=== PATIENT | male | born 1955 | race Caucasian/White ===

== ENCOUNTER 2016-10-08 15:15 | Emergency (ER) | payer BC ==
[~2016-10-08] VITALS: Ht 180.3 cm; Wt 93.0 kg
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
[2016-10-08 15:47] LABS: BASOPHILS % (AUTO) 0.4 % (0.0-2.0); EOSINOPHILS # (AUTO) 0.1 /CMM (0.0-0.7); EOSINOPHILS % (AUTO) 1.1 % (0.0-6.0); HEMATOCRIT 42 % (39-51); HEMOGLOBIN 13.7 g/dL (13.5-17.5); LYMPHOCYTES # (AUTO) 1.4 /CMM (0.8-4.8); LYMPHOCYTES % (AUTO) 21.7 % (20.0-44.0); MEAN CORPUSCULAR HEMOGLOBIN 28 PG (26.0-33.0); MEAN CORPUSCULAR HGB CONC 33 g/dl (31.0-36.0); MEAN CORPUSCULAR VOLUME 84 fL (80-96); MONOCYTES # (AUTO) 0.5 /CMM (0.1-1.30); MONOCYTES % (AUTO) 7.9 % (2.0-12.0); NEUTROPHILS # (AUTO) 4.4 /CMM (1.8-8.9); NEUTROPHILS % (AUTO) 68.9 % (43.0-81.0); PLATELET COUNT (AUTO) 190 /CMM (150-450); RDW COEFFICIENT OF VARIATION 14.2 (11.5-15.0); RED BLOOD CELL COUNT(AUTO) 4.99 MIL/uL (4.5-6.0); WHITE BLOOD COUNT (AUTO) 6.4 K/uL (4.3-11.0)
[2016-10-08] MEDS ORDERED: ONDANSETRON HCL/PF 4 MG/2 ML VIAL ONE ×2 (15:55)
[2016-10-08] MEDS ORDERED: MORPHINE SULFATE INJ 2 MG/ML DISP.SYRIN ONE (15:55)
[2016-10-08] MEDS ORDERED: ONDANSETRON HCL/PF 4 MG/2 ML VIAL IV ONE (16:00)
[2016-10-08] MEDS ORDERED: MORPHINE SULFATE INJ 2 MG/ML DISP.SYRIN IV ONE (16:00)
--- NOTE | 2016-10-08 16:00 | NUR ---
PT TO CT SCAN
[2016-10-08 16:01] LABS: INR 1.08 (0.87-1.13); PROTHROMBIN TIME 11.2 SECS (9.5-12.7)
[2016-10-08 16:05] LABS: CALCIUM, SERUM 8.8 mg/dL (8.5-10.1); CARBON DIOXIDE 30 mmol/L (21-32); CHLORIDE 105 mmol/L (98-107); CREATININE 0.7 mg/dL (0.6-1.3); GLUCOSE 94 mg/dL (74-106); POTASSIUM 3.9 mmol/L (3.5-5.1); SODIUM SERUM 141 mmol/L (136-145); UREA NITROGEN, BLOOD 22 mg/dL (7-18)
[2016-10-08 16:14] LABS: TROPONIN I < 0.017 ng/mL (0.00-0.056)
[2016-10-08 17:44] VITALS: BP 132/64
--- NOTE | 2016-10-08 17:47 | NUR ---
Patient discharged to home in stable condition. Written and verbal after care instructions given. Patient verbalizes understanding of instruction. IV removed. Catheter intact and site benign. Pressure and 4x4 applied to site. No bleeding noted. ambulatory with steady gait. rr even and unlabored. CD given, no further complaints.
== END 2016-10-08 17:46 | disposition home or self-care (01) ==
LOC: ER 15:17
DX: M54.2 Cervicalgia (principal); I10 Essential (primary) hypertension; M79.1 Myalgia; V43.52XA Car driver injured in collision with other type car in traffic accident, initial encounter; Y92.488 Other paved roadways as the place of occurrence of the external cause; Y93.89 Activity, other specified; Y99.8 Other external cause status
CPT/HCPCS: 36415; 71010; 72100; 72125; 80048; 84484; 85025; 85730; 93005; 96374; 96375; 99285; A4606; J2270; J2405 ×2; Z7610

== ENCOUNTER 2018-06-07 09:07 | Emergency (ER) | payer BC, OTHER ==
[~2018-06-07] VITALS: Ht 180.3 cm; Wt 92.1 kg
--- NOTE | 2018-06-07 09:07 | NUR ---
PT BIB FAMILY C/O DIZZINESS AND SYNCOPAL EPISODE ON THE WAY TO THE BATHROOM THIS MORNING, PT IS AAOX4, NOT IN RESPIRATORY DISTRESS, V/S STABLE, HOOKED TO MONITOR, KEPT RESTED AND COMFORTABLE, WILL CONTINUE TO MONITOR.
--- NOTE | 2018-06-07 09:10 | NUR ---
SEEN AND EXAMINED BY DR. SCHWARZ.
--- NOTE | 2018-06-07 09:10 | NUR ---
IV LINE ESTABLISHED, LABS DRAWNED AND SENT TO LAB.
--- NOTE | 2018-06-07 09:16 | NUR ---
RADIOLOGY AT BEDSIDE FOR CHEST XRAY.
[2018-06-07 09:23] LABS: BASOPHILS % (AUTO) 0.4 % (0.0-2.0); EOSINOPHILS % (AUTO) 1.2 % (0.0-6.0); HEMATOCRIT 43 % (39-51); HEMOGLOBIN 14.5 g/dL (13.5-17.5); LYMPHOCYTES % (AUTO) 14.3 % (20.0-44.0); MEAN CORPUSCULAR HGB CONC 33 g/dl (31.0-36.0); MEAN CORPUSCULAR VOLUME 87 fL (80-96); MONOCYTES # (AUTO) 0.6 /CMM (0.1-1.30); MONOCYTES % (AUTO) 8.8 % (2.0-12.0); NEUTROPHILS # (AUTO) 5.1 /CMM (1.8-8.9); NEUTROPHILS % (AUTO) 75.3 % (43.0-81.0); PLATELET COUNT (AUTO) 176 /CMM (150-450); RED BLOOD CELL COUNT(AUTO) 4.99 MIL/uL (4.5-6.0); WHITE BLOOD COUNT (AUTO) 6.8 K/uL (4.3-11.0)
[2018-06-07 09:27] LABS: CALCIUM, SERUM 8.8 mg/dL (8.5-10.1); CARBON DIOXIDE 25 mmol/L (21-32); CHLORIDE 106 mmol/L (98-107); CREATININE 0.9 mg/dL (0.6-1.3); GLUCOSE 123 mg/dL (74-106); POTASSIUM 3.9 mmol/L (3.5-5.1); SODIUM SERUM 139 mmol/L (136-145); UREA NITROGEN, BLOOD 15 mg/dL (7-18)
[2018-06-07] MEDS ORDERED: [UNRECOGNIZED DRUG - CODE] (09:55)
[2018-06-07] MEDS ORDERED: LISI-607 PO (09:55)
[2018-06-07] MEDS ORDERED: FOLI1TAB16 PO (09:55)
[2018-06-07 10:03] LABS: ALBUMIN 3.6 g/dL (3.4-5.0); BILIRUBIN,DIRECT 0.1 mg/dL (0.0-0.2); BILIRUBIN,TOTAL 0.7 mg/dL (0.2-1.0); TOTAL PROTEIN, SERUM 7.3 g/dL (6.4-8.2)
[2018-06-07] MEDS ORDERED: ONDANSETRON HCL/PF 4 MG/2 ML VIAL ONE (10:21)
[2018-06-07] MEDS ORDERED: ATOR40TA PO (10:23)
[2018-06-07] MEDS ORDERED: ONDANSETRON HCL/PF 4 MG/2 ML VIAL IV ONE (10:30)
--- NOTE | 2018-06-07 11:38 | NUR ---
PT IS WHEELED TO CT SCAN VIA WHEELCHAIR.
--- NOTE | 2018-06-07 13:13 | NUR ---
IV removed. Catheter intact and site benign. Pressure and 4x4 applied to site. No bleeding noted. Patient discharged to home in stable condition. Written and verbal after care instructions given. Patient verbalizes understanding of instruction.
[2018-06-07 13:14] VITALS: BP 131/84
== END 2018-06-07 13:16 | disposition home or self-care (01) ==
LOC: ER 09:10
DX: R55 Syncope and collapse (principal); I10 Essential (primary) hypertension; Z90.49 Acquired absence of other specified parts of digestive tract; Z95.818 Presence of other cardiac implants and grafts; Z79.899 Other long term (current) drug therapy
CPT/HCPCS: 36415; 70450; 71045; 74176; 80048; 80076; 83690; 84484; 85025; 93005; 99284; J2405

== ENCOUNTER 2019-10-12 11:51 | Inpatient (IN) | payer MEDICARE, OTHER ==
[~2019-10-12] VITALS: Ht 180.3 cm; Wt 92.1 kg
[~2019-10-12 11:51] MED LIST: ATOR40TA PO; FOLI1TAB16 PO; LISI-607 PO; [UNRECOGNIZED DRUG - CODE]
--- NOTE | 2019-10-12 12:05 | NUR ---
PT WHEELED TO ED BED 01 C/O R INGUINAL AREA PAIN AND SWELLING WORST THE PAST 2 DAYS. WAS DIAGNOSED W/ HERNIA 6 MONTHS AGO. PT GOWNED AND PLACED ON MONITOR. VSS. AWAITING MD SNOW.
[2019-10-12] MEDS ORDERED: ONDANSETRON HCL/PF 4 MG/2 ML VIAL ONE (12:23)
--- NOTE | 2019-10-12 12:23 | NUR ---
DR JEONG AT BEDSIDE FOR EVAL.
[2019-10-12] MEDS ORDERED: MORPHINE SULFATE INJ 4 MG/ML DISP.SYRIN ONE (12:24)
[2019-10-12] MEDS ORDERED: MORPHINE SULFATE INJ 2 MG/ML DISP.SYRIN IV ONE (12:30)
[2019-10-12] MEDS ORDERED: ONDANSETRON HCL/PF - ER 4 MG/2 ML VIAL IV ONE (12:30)
--- NOTE | 2019-10-12 12:35 | NUR ---
PT PLACED ON TRENDELENBERG POSITION W/ ICE PACK PLACED TO THE GROIN AREA.
[2019-10-12 12:38] LABS: BASOPHILS % (AUTO) 0.5 % (0.0-2.0); EOSINOPHILS % (AUTO) 0.2 % (0.0-6.0); HEMATOCRIT 42 % (39-51); HEMOGLOBIN 14.1 g/dL (13.5-17.5); LYMPHOCYTES # (AUTO) 1.5 /CMM (0.8-4.8); LYMPHOCYTES % (AUTO) 15.3 % (20.0-44.0); MEAN CORPUSCULAR HGB CONC 33 g/dl (31.0-36.0); MEAN CORPUSCULAR VOLUME 87 fL (80-96); MONOCYTES # (AUTO) 0.5 /CMM (0.1-1.30); NEUTROPHILS # (AUTO) 7.9 /CMM (1.8-8.9); PLATELET COUNT (AUTO) 213 /CMM (150-450); RED BLOOD CELL COUNT(AUTO) 4.87 MIL/uL (4.5-6.0)
[2019-10-12 12:48] LABS: CALCIUM, SERUM 9.1 mg/dL (8.5-10.1); CREATININE 0.8 mg/dL (0.6-1.3); POTASSIUM 3.7 mmol/L (3.5-5.1)
[2019-10-12 12:54] LABS: ALBUMIN 3.8 g/dL (3.4-5.0); BILIRUBIN,DIRECT 0.2 mg/dL (0.0-0.2); BILIRUBIN,TOTAL 0.9 mg/dL (0.2-1.0); TOTAL PROTEIN, SERUM 7.2 g/dL (6.4-8.2)
--- NOTE | 2019-10-12 13:19 | NUR ---
PT TO RADIOLOGY FOR ABDOMINAL CT SCAN VIA [facility].
[2019-10-12] MEDS ORDERED: IV NS 0.9% 250 ML IV ONE (13:21)
[2019-10-12] MEDS ORDERED: IOHEXOL-300 100 ML VIAL IV ONE (13:21)
[2019-10-12] MEDS ORDERED: ASPI-1169 PO (14:47)
--- NOTE | 2019-10-12 15:21 | NUR ---
SPOKE TO REINALDO, RUBY DEVELOPER FOR [facility]
--- NOTE | 2019-10-12 15:43 | NUR ---
PT ENROUTE TO OR VIA GURNEY.
--- NOTE | 2019-10-12 15:49 | NUR ---
CALLED DR LAGUNA, LEFT VOICEMAIL
[2019-10-12] MEDS ORDERED: ANESTHESIA TRAY IN PYXIS 1 EA TRAY MC ONE (15:53)
[2019-10-12] MEDS ORDERED: BUPIVACAINE 0.5 % PF 150 MG/30 ML VIAL ONE (15:53)
--- NOTE | 2019-10-12 16:00 | NUR ---
LEFT MESSAGE FOR DR LAUGNA, NO REPLY
[2019-10-12] MEDS ORDERED: IV NS 0.9% 1,000 ML IV PRN ×2 (16:39→17:00)
[2019-10-12] MEDS ORDERED: ZOLPIDEM TARTRATE 5 MG TABLET PO PRN ×3 (17:00→18:00)
[2019-10-12] MEDS ORDERED: MORPHINE SULFATE INJ 2 MG/ML DISP.SYRIN IV PRN ×3 (17:00→18:30)
[2019-10-12] MEDS ORDERED: Z GUARD REMEDY 2 OZ OINT TP PRN ×2 (17:00→17:15)
[2019-10-12] MEDS ORDERED: ONDANSETRON HCL/PF 4 MG/2 ML VIAL IVP PRN ×2 (17:00→17:15)
[2019-10-12] MEDS ORDERED: ENOXAPARIN SODIUM 40 MG/0.4 ML DISP.SYRIN SQ SCH ×2 (17:00→21:00)
[2019-10-12] MEDS ORDERED: MAG HYDROX/AL HYDROX/SIMETH 30 ML UDC PO PRN ×2 (17:00→17:15)
[2019-10-12] MEDS ORDERED: ACETAMINOPHEN 325 MG TABLET PO PRN ×3 (17:00→18:00)
[2019-10-12] MEDS ORDERED: HYDROCODONE/APAP 5/325MG 1 EACH TABLET PO PRN ×4 (17:00→18:30)
[2019-10-12] MEDS ORDERED: MAGNESIUM HYDROXIDE 30 ML UDC PO PRN ×2 (17:00→17:15)
[2019-10-12] MEDS ORDERED: FENTANYL PF 100MCG/2ML AMPUL ONE (17:35)
[2019-10-12] MEDS ORDERED: HYDROMORPHONE INJ 0.5 MG/0.5 ML SYRINGE IV PRN (18:00)
[2019-10-12] MEDS ORDERED: HYDROMORPHONE 1 MG/1 ML DISP.SYRIN IV PRN (18:00)
[2019-10-12] MEDS ORDERED: IV 1/2NS 1000 ML 1,000 ML IV PRN (18:00)
--- NOTE | 2019-10-12 18:27 | NUR ---
RN ADMITTED FROM SURGERY Patient arrived on unit A/O x4, showing no signs of acute distress or SOB, saturating 98% on 2L NC. S/P reduction incarcerated right inguinal hernia repair with Dr. Ren. Mesh dressing noted on lower right abdomen. Patient has no complaints of pain at this time. IV line in the RAC #18g is clean and intact flushing well. Post-op orders have been faxed to pharmacy by Calvin CALDERA. DVT pumps in place. Bed is in lowest position, side rails x3 in upright position, call light is within reach, fall safety and aspiration precautions enforced. Will endorse to cook night for admitting process.
[2019-10-12] MEDS ORDERED: IV D5/0.45 NACL W/20 MEQ KCL 1L IV PRN ×2 (18:30)
[2019-10-12 18:32] VITALS: BP 156/94
--- NOTE | 2019-10-12 19:30 | NUR ---
RN NOTES RECEIVED PT. AWAKE ON BED, S/P INCARCERATED INGUINAL HERNIA, A/OX4, DRESSING ON THE RIGHT LATERAL ABDOMEN DRY AND INTACT, ADMISSION INSTRUCTION WAS GIVEN, , CALL LIGHT WITHIN REACH, NOT IN DISTRESS, DENIES PAIN, CONTINUE TO MONITOR
[2019-10-12 20:00] VITALS: BP 145/83
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
[2019-10-13] VITALS: BP 124/74
[2019-10-13] MEDS: ANCEF 1 GM/50 ML D5W IV SCH ×6 (00:04→15:58)
[2019-10-13 04:00] VITALS: BP 131/84
[2019-10-13 06:18] LABS: BASOPHILS % (AUTO) 0.1 % (0.0-2.0); HEMATOCRIT 41 % (39-51); HEMOGLOBIN 13.2 g/dL (13.5-17.5); LYMPHOCYTES # (AUTO) 0.8 /CMM (0.8-4.8); LYMPHOCYTES % (AUTO) 6.3 % (20.0-44.0); MEAN CORPUSCULAR HGB CONC 32 g/dl (31.0-36.0); MEAN CORPUSCULAR VOLUME 86 fL (80-96); MONOCYTES # (AUTO) 0.7 /CMM (0.1-1.30); MONOCYTES % (AUTO) 5.1 % (2.0-12.0); NEUTROPHILS # (AUTO) 11.5 /CMM (1.8-8.9); NEUTROPHILS % (AUTO) 88.5 % (43.0-81.0); PLATELET COUNT (AUTO) 210 /CMM (150-450); RED BLOOD CELL COUNT(AUTO) 4.73 MIL/uL (4.5-6.0)
--- NOTE | 2019-10-13 06:48 | NUR ---
RN NOTES AWAKE, DENIES PAIN, NO SOB, MORNING CARE, RENDERED, ALL LIGHT WITHIN REACH, [id number], PT. NEEDS ATTENDED
[2019-10-13 06:58] LABS: CALCIUM, SERUM 8.6 mg/dL (8.5-10.1); CREATININE 0.8 mg/dL (0.6-1.3); MAGNESIUM 2.4 mg/dL (1.8-2.4); POTASSIUM 3.8 mmol/L (3.5-5.1)
[2019-10-13 08:00] VITALS: BP 142/90
--- NOTE | 2019-10-13 08:00 | NUR ---
STRATEGIC ALLIANCES MANAGER AM NOTES Patient A/O x4, showing no signs of acute distress or SOB, saturating 98% on room air. S/P reduction incarcerated right inguinal hernia repair with Dr. Ren 10/11. Mesh dressing noted on lower right abdomen. Patient has no complaints of pain at this time. IV line in the RAC #18g with D51/2 NS +20 MEQ KCL at 60 ml/hr infusing well. DVT pumps in place. Bed is in lowest position, side rails x3 in upright position, call light is within reach, fall safety and aspiration precautions enforced.
[2019-10-13] MEDS ORDERED: HYDR-4384 PO (08:03)
[2019-10-13] MEDS ORDERED: ASPIRIN 81 MG TAB.CHEW PO SCH (09:00)
[2019-10-13] MEDS ORDERED: LISINOPRIL (5MG) 5 MG TABLET PO SCH (09:00)
[2019-10-13] MEDS ORDERED: FOLIC ACID 1 MG TABLET PO SCH (09:00)
[2019-10-13] MEDS ORDERED: ATORVASTATIN 40 MG TABLET PO SCH (09:00)
[2019-10-13] MEDS ORDERED: ENOXAPARIN SODIUM 40 MG/0.4 ML DISP.SYRIN SQ SCH (09:00)
--- NOTE | 2019-10-13 13:25 | NUR ---
pod#1 s/p reduction and hernia repair. He is alert and pleasant, lives locally with his . He is ambulatory and independent with adl's. Has no DME or homehealth reported. Current dc plan is to return home, family will provide ride. Addendum: 10/13/19 at 1835 by KARSTEN MOORE RN Amended: Links added.
[2019-10-13 16:00] VITALS: BP 122/61
--- NOTE | 2019-10-13 18:30 | NUR ---
DISCHARGE PT HOME WITH STABLE V/S.DISCHARGE INSTRUCTIONS AND PRESCRIPTIONS GIVEN TO THE PT.IV H/L TO RT AC REMOVED WITH NO BLEEDING NOTED.DENIES ANY PAIN OR DISTRESS. RT LATERAL SURGICAL INCISION SITE HAS DRESSINGS INTACT AND DRY WITH NO BLEEDING OR STRIKE THROUGH NOTED.
== END 2019-10-13 18:30 | disposition home or self-care (01) | DRG 352 ==
LOC: ER 11:51 → MED 17:46 → TELE 10-13 00:49 → MED 10-13 11:10
PROVIDERS: ADMIT Internal Medicine; ATTEND Internal Medicine
PROC: 0YU50JZ Supplement Right Inguinal Region with Synthetic Substitute, Open Approach (ICD-10-PCS; principal; 2019-10-12)
DX: K40.30 Unilateral inguinal hernia, with obstruction, without gangrene, not specified as recurrent (principal); E78.5 Hyperlipidemia, unspecified; I10 Essential (primary) hypertension; I25.10 Atherosclerotic heart disease of native coronary artery without angina pectoris; K42.9 Umbilical hernia without obstruction or gangrene; K44.9 Diaphragmatic hernia without obstruction or gangrene; N40.0 Benign prostatic hyperplasia without lower urinary tract symptoms; Z79.82 Long term (current) use of aspirin; Z90.49 Acquired absence of other specified parts of digestive tract; Z95.0 Presence of cardiac pacemaker; Z95.1 Presence of aortocoronary bypass graft; N28.1 Cyst of kidney, acquired
CPT/HCPCS: 36415; 71045-TC; 76770-TC; 80048-TC; 80076-TC; 83690-TC; 83735-TC; 85025-TC; 85730-TC; 86850-TC; 87081-TC; A6209; C1781; C9803-CS; G0378; J0330; J0690; J1100; J1650; J1885; J2270; J2405; J2704; J3010; J3480; J3490; J7050; J7060; Q9967

== ENCOUNTER 2022-02-27 18:46 | Inpatient (IN) | payer MEDICARE ==
[~2022-02-27] VITALS: Ht 180.3 cm; Wt 92.5 kg
[~2022-02-27 18:46] MED LIST changes: +ASPI-1169 PO; +HYDR-4384 PO; -LISI-607 PO; +LISI-768 PO; -[UNRECOGNIZED DRUG - CODE]
--- NOTE | 2022-02-27 19:42 | NUR ---
BIBSELF C/O L GROIN PAIN X1 WEEK. HX INGUINAL HERNIA. PT A/OX4. TOLERATING R/A WELL WITH NO RESP DISTRESS. AMBULATORY WITH STEADY GAIT. SAFETY MEASURES IN PLACE.
[2022-02-27] MEDS ORDERED: MORPHINE SULFATE INJ 2 MG/ML DISP.SYRIN IV ONE (20:00)
--- NOTE | 2022-02-27 20:28 | NUR ---
LFA #20G S/L BLOOD COLLECTED AND SENT TO LAB
[2022-02-27] MEDS ORDERED: MORPHINE SULFATE INJ 2 MG/ML DISP.SYRIN ONE (20:30)
--- NOTE | 2022-02-27 20:37 | NUR ---
PT TAKEN TO CT VIA JORGE A
[2022-02-27 20:40] LABS: BASOPHILS % (AUTO) 0.5 % (0.0-2.0); EOSINOPHILS % (AUTO) 1.6 % (0.0-6.0); HEMATOCRIT 41 % (39-51); HEMOGLOBIN 13.3 g/dL (13.5-17.5); LYMPHOCYTES # (AUTO) 2.2 K/uL (0.8-4.8); LYMPHOCYTES % (AUTO) 29.9 % (20.0-44.0); MEAN CORPUSCULAR HGB CONC 33 g/dl (31.0-36.0); MEAN CORPUSCULAR VOLUME 86 fL (80-96); MONOCYTES # (AUTO) 0.6 K/uL (0.1-1.30); MONOCYTES % (AUTO) 8.2 % (2.0-12.0); NEUTROPHILS # (AUTO) 4.4 K/uL (1.8-8.9); NEUTROPHILS % (AUTO) 59.8 % (43.0-81.0); PLATELET COUNT (AUTO) 179 K/uL (150-450); RED BLOOD CELL COUNT(AUTO) 4.76 MIL/uL (4.5-6.0); WHITE BLOOD COUNT (AUTO) 7.3 K/uL (4.3-11.0)
--- NOTE | 2022-02-27 20:41 | NUR ---
PT RETURNED TO ER BED [address]
--- NOTE | 2022-02-27 21:26 | NUR ---
GEN SURGERY DR LIMA SPEAKING WITH DR MONTANO
[2022-02-27 21:28] LABS: CALCIUM, SERUM 8.9 mg/dL (8.5-10.1); POTASSIUM 3.9 mmol/L (3.5-5.1)
[2022-02-27 21:33] LABS: ALBUMIN 3.6 g/dL (3.4-5.0); BILIRUBIN,TOTAL 0.3 mg/dL (0.2-1.0); TOTAL PROTEIN, SERUM 6.9 g/dL (6.4-8.2)
--- NOTE | 2022-02-27 21:43 | NUR ---
COVID SWAB COLLECTED
--- NOTE | 2022-02-27 21:56 | NUR ---
CALLED OFFICE OF [facility], PAGED FOR ADMISSION
--- NOTE | 2022-02-27 22:05 | NUR ---
PT SIGNED SURGICAL CONSENT FORM FOR LAPAROSCOPIC REPAIR OF INCARCERATED LEFT INGUINAL HERNIA POSSIBLE OPEN, BLOOD TRANSFUSION, AND ANESTHESTHIA CONSENT FORM. PER DR. LIMA SURGERY WITH MONIQUE SARMIENTO.
[2022-02-27] MEDS ORDERED: ROCURONIUM BROMIDE 50 MG/5 ML ONE (22:48)
[2022-02-27] MEDS ORDERED: HYDROMORPHONE INJ 2 MG/ML DISP.SYRIN ONE (22:48)
[2022-02-27] MEDS ORDERED: FAMOTIDINE/PF INJ 20 MG/2 ML VIAL IV ONE (22:49)
--- NOTE | 2022-02-27 22:50 | NUR ---
RN NOTES RECEIVED PATIENT VIA JORGE A FROM ER AT 2248. PATIENT IS A/O TIMES 4. URUGUAYAN SPEAKER. NO PAIN NOTED. NO SOB NOTED. NO DISTRESS NOTED. BELONGINGS WITH THE PATIENT. IV ACCESS ON THE LFA G # [address] INTACT [address] SL. ARRIVED . DR LIMA ALSO ARRIVED TO CHECK ON THE PATIENT. AT 2320 PATIENT TRANSFERRED TO OR WITH 3 OR NURSES FOR SURGERY FOR SURGERY. PATIENT LEFT UNIT FOR SURGERY AT 2320.
--- NOTE | 2022-02-27 22:52 | NUR ---
PT TRANSFERRED TO 324-2 VIA ACLS PROTOCOL. VSS. ALL BELONGINGS WITH PT.
[2022-02-27 23:00] VITALS: BP 159/86
[2022-02-27] MEDS ORDERED: LIDOCAINE 1% INJ 50 ML MDV IJ ONE (23:01)
[2022-02-27] MEDS ORDERED: BUPIVACAINE MPF 0.5% W/EPI INJ 30 ML VIAL ONE (23:01)
[2022-02-27 23:39] LABS: BILIRUBIN,DIRECT 0.1 mg/dL (0.0-0.2)
[2022-02-28] MEDS ORDERED: ANESTHESIA TRAY IN PYXIS 1 EA TRAY MC ONE (01:13)
--- NOTE | 2022-02-28 01:50 | NUR ---
MS RN NOTES PATIENT BACK FROM SURGERY AT 0150 . ALERT AND ORIENTED TIMES 4 . NO LOT652/77, P=N NOTED. NO SOB NOTED. NO DISTRESS NOTED. VITAL SIGNS NOTED , BP=703/77, P=64, 02=98%, T=97.5, RR=18. ABLE TO MAKE NEEDS KNOWN. ALL NEEDS ATTENDED. WILL CONTINUE TO MONITOR.
[2022-02-28] MEDS ORDERED: CELECOXIB 100 MG CAPSULE PO ONE (02:00)
[2022-02-28] MEDS ORDERED: HYDROCODONE/APAP 10/325MG TABLET PO PRN (02:00)
[2022-02-28] MEDS ORDERED: GABAPENTIN 300 MG CAPSULE PO ONE (02:00)
[2022-02-28] MEDS ORDERED: ACETAMINOPHEN 325 MG TABLET PO PRN (02:00)
[2022-02-28 04:21] LABS: BILIRUBIN,URINE NEGATIVE (NEGATIVE); COLOR,URINE YELLOW (YELLOW); LEUKOCYTE ESTERASE ,URINE NEGATIVE (NEGATIVE); NITRITE, URINE NEGATIVE (NEGATIVE); PROTEIN,URINE NEGATIVE (NEGATIVE); UGLUCOSE NEGATIVE (NEGATIVE); UROBILINOGEN,URINE 0.2 EU/dL (0.2)
--- NOTE | 2022-02-28 06:45 | NUR ---
MS RN NOTES PATIENT AWAKE IN BED. NO PAIN NOTED. NO SOB NOTED. NO DISTRESS NOTED. IV ACCESS ON THE LEFT FA GAUGE # 20 INTACT AND PATENT. ALL NEEDS ATTENDED. PATIENT IS A/O TIMES 4 ROMANIAN SPEAKER. S/P OF THE LEFT INGUINAL HERNIA SURGERY. NO BLEEDING NOTED. ALL DUE MEDS GIVEN ORDERED. ALL SAFETY MEASURES IN PLACE. BED LOCKED IN THE LOWEST POSITION. CALL LIGHT AND TABLE IN EASY REACH. SIDE RAILS UP TIMES 2. PATIENT WAS ABLE TO VOID 800 ML USING URINAL.WILL ENDORSE FOR GILLIAN.
--- NOTE | 2022-02-28 07:17 | NUR ---
MS RN OPENING NOTES: PATIENT AWAKE IN BED, A/O X4, ABLE TO MAKE NEEDS KNOWN. ON RA WITH NO S/S OF SOB AND ACUTE DISTRESS NOTED. DENIES PAIN AT THIS TIME. IV ACCESS ON THE LEFT FA GAUGE # 20 INTACT AND PATENT. S/P OF THE LEFT INGUINAL HERNIA SURGERY 02/28 @0100. NO BLEEDING NOTED, DRESSING AT SURGICAL SITE, C,D,I. ALL SAFETY MEASURES IN PLACE. BED LOCKED IN THE LOWEST POSITION. CALL LIGHT AND TABLE IN EASY REACH, SIDE RAILS UP X, WILL CONT WITH PLAN OF CARE DURING SHIFT.
[2022-02-28 08:12] VITALS: BP 135/85
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
== END 2022-02-28 14:47 | disposition home or self-care (01) | DRG 352 ==
LOC: ER 18:48 → MED 22:26
PROVIDERS: ADMIT Nurse Practitioner Family; ATTEND Nurse Practitioner Family
PROC: 0VBG0ZZ Excision of Left Spermatic Cord, Open Approach (ICD-10-PCS; principal; 2022-02-27)
PROC: 0YU60JZ Supplement Left Inguinal Region with Synthetic Substitute, Open Approach (ICD-10-PCS; principal; 2022-02-27)
DX: K40.30 Unilateral inguinal hernia, with obstruction, without gangrene, not specified as recurrent (principal); I25.10 Atherosclerotic heart disease of native coronary artery without angina pectoris; D17.6 Benign lipomatous neoplasm of spermatic cord; I10 Essential (primary) hypertension; E78.00 Pure hypercholesterolemia, unspecified; Z79.82 Long term (current) use of aspirin; Z79.899 Other long term (current) drug therapy; Z87.891 Personal history of nicotine dependence; Z95.0 Presence of cardiac pacemaker; Z95.1 Presence of aortocoronary bypass graft; E66.9 Obesity, unspecified; R79.89 Other specified abnormal findings of blood chemistry; Z20.822 Contact with and (suspected) exposure to COVID-19; Z90.49 Acquired absence of other specified parts of digestive tract
CPT/HCPCS: 36415; 80048-TC; 80076-TC; 82962-TC; 83690-TC; 85025-TC; 87081-TC; 88305-TC; C1781; G0378; J0330; J0690; J1100; J1170; J1885; J2270; J2405; J2704; J3490; J7030